=== PATIENT | male | born 1975 | race Two or more races ===

== ENCOUNTER 2025-09-08 09:47 | Outpatient (CLI) | payer OTHER | END 2025-09-08 09:48 | disposition home or self-care (01) | LOC: NUCLEAR 09:47 | DX: I11.9 Hypertensive heart disease without heart failure (principal) ==

== ENCOUNTER → 2025-11-02 | Emergency (ER) | payer OTHER ==
[~2025-11-02] VITALS: Ht 180.3 cm; Wt 162.4 kg
[~2025-11-02] MED LIST: 0.9 % SODIUM CHLORIDE 1,000 ML IV STA; CEPHALEXIN500 M1 PO; METFORMIN HCL500 MG; NAPROXEN500 MG PO; PIPERACILLIN/TAZOBACTAM SODIUM 3.375 GM VIAL IV ONE; PIPERACILLIN/TAZOBACTAM SODIUM 3.375 GM in DEXTROSE 5 % IN WATER 100 ML IV SCH; TELMISARTAN40 MG PO
[2025-11-03 00:18] LABS: BASO % 0.4 % (0.1-1.2); EOS # 0.24 (0.04-0.54); EOS % 2.1 % (0.7-7.0); LYMPH # 2.21 (1.18-3.74); LYMPH % 19.4 % (19.3-53.1); MEAN PLATELET VOLUME 9.00 fl (9.4-12.4); MONO # 1.09 (0.24-0.82); MONO % 9.6 % (4.7-12.5); NEUT # 7.71 (1.56-6.13); NEUT % 67.7 % (34.0-71.1); RED CELL DISTRIBUTION WIDTH 13.8 % (11.6-14.4)
[2025-11-03 00:21] LABS: ERYTHROCYTE SEDIMENTATION RATE 23 mm/hr (0-15)
[2025-11-03 00:40] LABS: INR 1.04
[2025-11-03 00:47] LABS: ALT/SGPT 20.0 U/L (12-78); AST/SGOT 10.0 U/L (15-37); BILIRUBIN TOTAL 0.91 mg/dL (0.3-1.2); BUN CREA RATIO 17.0 (7.0-25.0); CKMB 1.3 NG/ML (0.5-3.6); CREATININE SERUM 0.7 mg/dL (0.70-1.30); GFR 119.86; GLOBULINA 3.6 G/DL (2.4-3.5)
[2025-11-03 00:57] LABS: GLUCOSE FASTING 107.0 mg/dL (65-100); OSMOLALITY SERUM 280.0 MOSM/KG (275-295)
[2025-11-03 01:44] LABS: URINE APPEARANCE Cloudy; URINE BILIRRUBIN Negative (NEGATIVE); URINE BLOOD Negative; URINE COLOR Yellow; URINE GLUCOSE Negative (NEGATIVE); URINE KETONE Trace (NEGATIVE); URINE LEUKOCYTE Trace; URINE NITRATE Negative; URINE PROTEIN Negative (NEGATIVE); URINE UROBILINOGEN 0.2 E.U./dl
[2025-11-03 01:49] LABS: URINE BACTERIA 41.1 uL (0.0-1933); URINE EPITHELIAL CELLS 3.8 uL (0.0-38.8); URINE WBC 13.9 uL (0.0-23.2)
[2025-11-03 01:55] LABS: URINE CAST 0.00 uL (0.0-1.40); URINE RBC 1.6 uL (0.0-20.8)
== END | disposition home or self-care (01) ==
LOC: ER 20:40
PROVIDERS: Physician Assistant Medical
DX: I82.890 Acute embolism and thrombosis of other specified veins (principal); E66.01 Morbid (severe) obesity due to excess calories; I86.8 Varicose veins of other specified sites